=== PATIENT | male | born 1945 | race Caucasian/White ===

== ENCOUNTER 2017-03-14 17:41 | Emergency (ER) | payer MEDICARE, OTHER ==
[~2017-03-14 17:41] MED LIST: AMIT100 PO; AMIT50 PO; ASAB PO; AUG875 PO; BEN25 PO; CENTRUM PO; CENTRUM TAB1 TAB PO; CLARITD PO; CYMBALTA60 PO; DIGITEK0.125 MG PO; DIOV160 PO; DULERA 200 MCG/13 GM INH; ENDOCET1 TA3 PO; EYE VIT PO; FERROUS SULF325 M1 PO; FISH-EPA1000 MG PO; HALF81 PO; I40 PO; IRON325 MG PO; KLONO1 PO; L20 PO; LEVAQUIN5T PO; LIOR10 PO; LIPITOR40 PO; LORTAB 5 PO; MELATONIN5 M1 PO; MOBIC7.5 PO; MONODOX100 MG PO; MUCINEX DM PO; MULTIPLE VIT PO; MULTIVIT/MIN PO; NEUR300 PO; NEXIUM40 PO; NITROQUICK0.3 MG SL; OCUVITE PO; OSTEO BIFLEX PO; OXYCONTIN15 MG PO; PERCOCET1 TA2 PO; PERCOCET1 TA3 PO; PERCOCET1 TA4 PO; PRADAXA150 MG PO; PRESERVISION A1 EACH PO; PRIM250 PO; PRIN10 PO; SUPER B COMP PO; TESS PO; TRICOR145 PO; VENTOLIN HFA INH; VITAMIN D31000 UNIT PO; XANAX1 MG PO; XANAX2 MG PO; [UNRECOGNIZED DRUG - OTHER] PO
[2017-03-14 21:41] LABS: BASOPHILS 0.5 %; BASOPHILS ABSOLUTE 0.03 10/3/uL (0.0-0.16); EOSINOPHILS 2.9 %; EOSINOPHILS ABSOLUTE 0.18 10/3/uL (0.0-0.53); HEMATOCRIT 40.9 % (40.0-51.0); HEMOGLOBIN 13.4 g/dL (13.6-17.8); IMMATURE GRANULOCYTES 0.2 %; IMMATURE GRANULOCYTES ABSOLUTE 0.01 10/3/uL (0.0-0.11); LYMPHOCYTES ABSOLUTE 0.81 10/3/uL (0.67-4.30); MANUAL DIFF NO %; MEAN CORPUS HGB CONC 32.8 g/dL (32.0-36.0); MEAN CORPUSCULAR HEMOGLOB 32.5 pg (26.0-34.0); MEAN CORPUSCULAR VOLUME 99.3 fL (80-100); MEAN PLATELET VOLUME 8.7 fL (9.2-13.0); MONOCYTES 7.9 %; MONOCYTES ABSOLUTE 0.49 10/3/uL (0.21-1.20); NEUTROPHILS 75.5 %; PLATELET COUNT 176 10/3/uL (150-400); RBC DISTRIBUTION WIDTH 13.6 % (12.0-16.0); RED CELL COUNT 4.12 10/6/uL (4.7-6.1); WHITE BLOOD CELLS 6.2 10/3/uL (4.5-10.5)
[2017-03-14 21:50] LABS: ASCORBIC ACID (UR NOT ORDER) 40 (NEG); BILIRUBIN, URINE NEGATIVE (NEG); ER URINALYSIS TAT 0 Hrs 15 Mins; KETONE, URINE NEGATIVE (NEG); LEUKOCYTE ESTERASE(NOT OR SMALL (NEG); NITRITE (URINE) NEG (NEG); WBC (NOT ORDERED) (RFLEX) 6 (0-5)
[2017-03-14 21:52] LABS: INTERNATIONAL NORMAL RATI 1.2 UNITS (-); PARTIAL THROMBO TIME 40.9 SEC (22.5-37.2); PROTIME (NOT ORD) 15.5 SEC (12.0-14.5)
[2017-03-14 22:00] LABS: ALBUMIN 3.5 G/DL (3.5-5.0); ALKALINE PHOSPHATASE 163 U/L (45-117); CALCIUM, SERUM 8.9 MG/DL (8.5-10.4); CHEST PAIN PROFILE TAT 0 Hrs 25 Mins; CHLORIDE, SERUM 106 MMOL/L (96-112); CO2 (CARBON DIOXIDE) 29 MMOL/L (24-34); CREATININE 0.78 MG/DL (0.70-1.30); GFR AFRICAN AMERICAN 104 ML/MIN (>=60); GFR NON AFRICAN AMERICAN 90 ML/MIN (>=60); POTASSIUM, SERUM 4.6 MMOL/L (3.5-5.3); SGOT(AST) 22 U/L (5-40); SGPT(ALT) 27 U/L (5-65); SODIUM, SERUM 140 MMOL/L (135-148); TOTAL BILIRUBIN 0.3 MG/DL (0-1.2); TOTAL PROTEIN 7.6 G/DL (6.0-8.5); TROPONIN I 0.02 NG/ML (<0.05)
[2017-03-14 22:01] LABS: BUN (BLOOD UREA NITROGEN) 19 MG/DL (6-23); CPK 62 U/L (0-200); DIRECT BILIRUBIN < 0.1 MG/DL (0.0-0.4); GLUCOSE, SERUM 98 MG/DL (60-99); INDIRECT BILIRUBIN(NOT ORDER) 0.2 MG/DL (0.1-0.9)
[2017-03-14 23:42] LABS: PROCALCITONIN <0.05 ng/mL (<0.5)
[2017-05-10] MEDS ORDERED: VOLTAREN1 % TOP (22:12)
[2017-05-10] MEDS ORDERED: I40 PO (22:12)
[2017-05-10] MEDS ORDERED: NEUR600 PO (22:12)
[2017-05-10] MEDS ORDERED: PRADAXA150 MG PO (22:13)
[2017-05-10] MEDS ORDERED: ARICEPT10 PO (22:13)
[2017-05-10] MEDS ORDERED: NAMENDA10 MG PO (22:13)
[2017-05-10] MEDS ORDERED: LIPITOR40 PO (22:13)
[2017-05-10] MEDS ORDERED: TRAZ100 PO (22:14)
[2017-05-10] MEDS ORDERED: PRIM250 PO (22:14)
[2017-05-10] MEDS ORDERED: CYMBALTA60 PO (22:14)
[2017-05-10] MEDS ORDERED: NEXIUM40 PO (22:15)
[2017-05-10] MEDS ORDERED: VENTOLIN HFA INH (22:15)
[2017-05-10] MEDS ORDERED: MOBIC15 MG PO (22:15)
[2017-05-10] MEDS ORDERED: KRILLOIL PO (22:15)
[2017-05-10] MEDS ORDERED: VITAMIN D31000 UNIT PO (22:16)
[2017-05-10] MEDS ORDERED: MELATONIN5 M1 PO (22:16)
[2017-05-10] MEDS ORDERED: TUMERIC PO (22:16)
[2017-05-10] MEDS ORDERED: OCUVITE PO (22:16)
[2017-05-10] MEDS ORDERED: FERROUS SULF325 M1 PO (22:17)
[2017-05-10] MEDS ORDERED: VITC500 PO (22:17)
[2017-05-10] MEDS ORDERED: VITE PO (22:17)
[2017-05-10] MEDS ORDERED: VITAMIN B-122500 MCG SL (22:17)
[2017-05-10] MEDS ORDERED: BREO ELLIPTA INH (22:18)
[2017-05-10] MEDS ORDERED: NORCO1 TAB PO ×2 (22:18)
[2017-05-10] MEDS ORDERED: ASTELIN NAS (22:19)
[2017-05-10] MEDS ORDERED: PROVHFA INH (22:20)
[2017-05-10] MEDS ORDERED: EXCEDRIN EXTRA1 EACH PO (22:20)
[2017-05-10] MEDS ORDERED: IMOD PO (22:21)
[2017-05-10] MEDS ORDERED: ASAB PO (22:22)
== END 2017-03-15 00:43 | disposition home or self-care (01) ==
LOC: ER 17:41
PROVIDERS: Emergency Medicine
DX: J32.8 Other chronic sinusitis (principal); J44.9 Chronic obstructive pulmonary disease, unspecified; I25.10 Atherosclerotic heart disease of native coronary artery without angina pectoris; I48.91 Unspecified atrial fibrillation; E11.9 Type 2 diabetes mellitus without complications; Z87.891 Personal history of nicotine dependence; Z95.1 Presence of aortocoronary bypass graft; Z79.891 Long term (current) use of opiate analgesic; Z79.899 Other long term (current) drug therapy
CPT/HCPCS: 70450; 71020; 80048; 80076; 81001; 82550; 83605; 83735; 84145; 84484; 85025; 85610; 85652; 85730; 87040; 87086; 93005; 96374; 96375; 99285; J1170; J2405